=== PATIENT | male | born 1990 | race Caucasian/White ===

== ENCOUNTER 2022-01-13 14:49 | Emergency (ER) | payer OTHER, SELFPAY ==
[2022-01-13] MEDS: Lidocaine/Epinephri/Tetracaine Topical Gel 3 ML TP (15:31)
[2022-01-13 15:33] VITALS: BP 146/88; PULSE 98; RESP 14; TEMP 36.6; O2SAT 97
--- NOTE | 2022-01-13 15:54 | ED.GENADUL_ITS ---
Discharge Plan Disposition Patient Disposition: HOME Condition: Stable Discharge Details Clinical Impression: Laceration Primary Care Provider: Kandy Sam ED Provider: Blossom Main Discharge Instructions Instructions: Laceration (ED) Additional Instructions: keep wound clean and dry wash daily with warm soapy water, rinse well, pat dry gently. can apply thin layer of antibiotic ointment and dry dressing to protect. can leave open to air at night. monitor for and report signs of infection, fever, drainage increased redness and pain return 7-10 days for suture removal Referrals: [facility] [Provider Group] (7-10 days for suture removal) Discharge Data Discharge Date/Time-TO BE ENTERED AT DEPARTURE: 01/13/22 16:34 Medical Decision Making laceration to thenar space of left hand, no bleeding, unknown tetanus, will update on this visit LET applied to wound and then further anesthetized with lidocaine 1 %, wound inspected with no evidence of foreign body or debris. irrigated will with normal saline. wound closed using 4-0 Ethilon suture material, 7 stitches placed, wound well approximated, cleansed again by nursing. xeroform and dry dressing applied. sutures out in 7-10 days. Medical Records Medical records reviewed: Yes I reviewed the patient's medical records. HPI General Date/Time Provider Initiated Documentation: 01/13/22 15:19 . Limitations to Documentation: no limitations . Information obtained by: patient . HPI Narrative: cut his right thumb at base between thumb in index finger. bleeding controlled with pressure. unknown last tetanus update. no other injury Related Data Allergies Allergy/AdvReac Type Severity Reaction Status Date / Time No Known Allergies Allergy Unverified 04/19/18 19:13 General Stated Complaint: Laceration SOL: 3 Review of Systems Constitutional Constitutional: Reports system reviewed and no additional complaints, except as documented and Denies fever(s) Musculoskeletal Musculoskeletal: Denies limited range of motion, Denies numbness and Denies tingling Integumentary/Breasts Skin/Breast: Reports other (laceration in thenar space) Neurologic Neurologic: Denies numbness and Denies tingling Hematologic/Lymphatic Hematologic/Lymphatic: Denies easy bleeding and Denies easy bruising PFSH All Active Problems (Updated 01/13/22 @ 15:59 by Blossom Main NP) Laceration (Acute) Social History Smoking/Tobacco Use Status: Never Smoking risk assessment performed?: Yes Alcohol Intake: current Alcohol Intake frequency: a few times a month Drug use: Never Substance use type: does not use Do you feel safe at home: Yes Do you feel safe in your relationship?: Yes Exam Const General: cooperative, healthy appearing, comfortable and no acute distress Nutritional Appearance: average body habitus Orientation: alert, awake and oriented x3 Cardio Rate: regular rate (strong radial pulse) Rhythm: regular rhythm Skin Trauma: laceration (thenar space on left hand, approx 4 cm, bleeding controlled.) Extrem General: other (good strength to thumb, good sensation) Course Vital Signs Vital signs: Vital Signs Temperature 36.6 C 01/13/22 15:33 Pulse 98 H 01/13/22 15:33 Respiratory Rate 14 01/13/22 15:33 Blood Pressure 146/88 H 01/13/22 15:33 Pulse Oximetry 97 01/13/22 15:33 Temperature 36.6 C 01/13/22 15:33 Temperature Source Temporal Artery Scan 01/13/22 15:33 Pulse 98 H 01/13/22 15:33 Respiratory Rate 14 01/13/22 15:33 Respiratory Effort 01/13/22 15:37 Blood Pressure 146/88 H 01/13/22 15:33 Blood Pressure Position Sitting 01/13/22 15:33 Pulse Oximetry 97 01/13/22 15:33 Oxygen Delivery Method Room Air 01/13/22 15:33 Oxygen Flow Rate 0 01/13/22 15:33 Procedures Laceration Laceration 1: Site: hand (thenar space on left) Side (If applicable): left Size (cm): 4 Description: irregular Depth: simple, single layer Local Anesthetic: Lidocaine 1% and other anesthetic (LET) Amount of anesthesia used (mL): 4 Pre-repair: wound explored and irrigated extensively Skin layer closed with: nylon Size (cm): 4-0 Number of sutures: 7 Technique: simple, interrupted PAWSS Have you Been Recently Intoxicated or Drunk Within the Last 30 days?: No Have you Ever Experienced Previous Episodes of Alcohol Withdrawal?: No Have you ever Experienced Withdrawal Seizures?: No Have you ever Experienced Delirium Tremens(DT)s?: No Have you ever undergone Alcohol Rehabilitation Treatment (i.e, inpt ot outpatient treatment programs)?: No Have you ever Experienced Blackouts?: No Have you ever Combined Alcohol with other Downers within the last 90 days?: No Have you ever Combined Alcohol with any other Substance of Abuse during the last 90 days?: No Positive Blood Alcohol level on Presentation? [PCS.BAL]: No Evidence of Increased Autonomic Activity (i.e. HR>120, tremor, sweating, agitation, nausea)?: No Result: 0
[2022-01-13] MEDS: Lidocaine 1% Multi-Dose 50 ML VIAL IJ (16:18)
== END 2022-01-13 16:34 | disposition home or self-care (01) ==
PROVIDERS: Emergency Provider Nurse Practitioner Acute Care; PCP Nurse Practitioner Adult Health
DX: S61.412A Laceration without foreign body of left hand, initial encounter (principal); W26.8XXA Contact with other sharp object(s), not elsewhere classified, initial encounter
CPT/HCPCS: 12002